=== PATIENT | male | born 1990 | race African-American/Black ===

== ENCOUNTER 2018-03-16 19:19 | Emergency (ER) | payer OTHER ==
[~2018-03-16] VITALS: Ht 188 cm; Wt 113.4 kg
[~2018-03-16 19:19] MED LIST: FLEXERIL PO; LIORESAL 10 MG10 MG PO; NOHOMEMEDICATIONS; NORCO 5-325 TA1 EAC1 PO; TRAMADOL 50 MG50 MG PO; VENTOLIN HFA 1818 GM INH; ZPAK PO
[2018-03-16] MEDS ORDERED: ACETAMINOPHEN-1 EAC1 PO (20:28)
[2018-03-16] MEDS ORDERED: IBUPROFEN 800800 M1 PO (20:28)
[2018-03-16 20:40] VITALS: BP 134/58
== END 2018-03-16 20:40 | disposition home or self-care (01) ==
LOC: M.ERS 19:19
DX: S63.591A Other specified sprain of right wrist, initial encounter (principal); X58.XXXA Exposure to other specified factors, initial encounter; Y93.89 Activity, other specified; Y92.89 Other specified places as the place of occurrence of the external cause; Y99.8 Other external cause status